=== PATIENT | female | born 2000 | race Hispanic/Latino ===

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

== ENCOUNTER 2019-03-14 00:47 | Emergency (ER) | payer OTHER, MEDICAID | END 2019-03-14 01:35 | disposition home or self-care (01) | LOC: EDH 00:47 | DX: S62.525A Nondisplaced fracture of distal phalanx of left thumb, initial encounter for closed fracture (principal); M79.7 Fibromyalgia; W23.0XXA Caught, crushed, jammed, or pinched between moving objects, initial encounter; Y93.89 Activity, other specified; Y92.89 Other specified places as the place of occurrence of the external cause; Y99.8 Other external cause status | CPT/HCPCS: 29125; 29130; 73140 ==

== ENCOUNTER 2021-11-26 23:57 | Emergency (ER) | payer MEDICAID, OTHER ==
[~2021-11-26] VITALS: Ht 162.6 cm; Wt 52.6 kg
[2021-11-27 01:03] LABS: BASOPHILS % (AUTO) 0.4 % (0.0-5.0); EOSINOPHILS % (AUTO) 4.6 % (0.0-8.0); HEMATOCRIT 33.9 % (36-48); LYMPHOCYTES % (AUTO) 33.5 % (21.0-51.0); MEAN CORPUSCULAR HEMOGLOBIN 30.5 pg (27.0-33.0); MEAN CORPUSCULAR HGB CONC 34.2 g/dL (32.0-36.0); MEAN CORPUSCULAR VOLUME 89.2 fL (79-99); MONOCYTES % (AUTO) 9.6 % (3.0-13.0); NEUTROPHILS % (AUTO) 51.5 % (40.0-77.0); PLATELET COUNT (AUTO) 246 K/uL (130-400); RED CELL DISTRIBUTION WIDTH 11.9 % (11.0-15.5); WHITE BLOOD COUNT (AUTO) 7.8 K/uL (4.8-10.8)
[2021-11-27] MEDS ORDERED: AMOX-426 PO (01:52)
[2021-11-27] MEDS ORDERED: AMOX/CLAV 875/125MG TAB PO ONE (01:59)
[2021-11-27] MEDS ORDERED: AMOX/CLAV 500/125MG TAB PO ONE (02:00)
[2021-11-27 02:11] VITALS: BP 128/88
== END 2021-11-27 02:12 | disposition home or self-care (01) ==
LOC: EDH 23:57
DX: L04.0 Acute lymphadenitis of face, head and neck (principal); R51.9 Headache, unspecified; R50.9 Fever, unspecified; Z20.822 Contact with and (suspected) exposure to COVID-19
CPT/HCPCS: 36415; 85025; 86308; 87635; 87804 ×2; 87880; 99283; C9803